=== PATIENT | female | born 1990 | race Two or more races ===

== ENCOUNTER 2024-05-07 14:31 | Outpatient (RCR) | payer OTHER, SELFPAY ==
--- NOTE | 2024-04-09 14:36 | XR_ITS ---
Examination: Biophysical profile, ultrasound Date and time of exam: April 09, 2024 1444 hours INDICATIONS: High risk Technique: Multiple transabdominal sonographic images of the pelvis abdomen obtained. Attention is directed to the breathing movement, gross body movement, amniotic fluid volume and tone. Findings: Amniotic fluid index 9.1 cm Total biophysical profile is 8 of 8. breathing movement is 2. Gross body movement is 2. tone is 2. Qualitative amniotic fluid volume is 2 Impression: Biophysical profile is 8 of 8.
[2024-04-09 15:07] VITALS: BP 125/81; PULSE 66; RESP 16
--- NOTE | 2024-04-16 14:35 | XR_ITS ---
Examination: Biophysical profile, ultrasound Date and time of exam: April 16, 2024 1459 hours INDICATIONS: heart murmur noted on examination this week, high risk Technique: Multiple transabdominal sonographic images of the pelvis abdomen obtained. Attention is directed to the breathing movement, gross body movement, amniotic fluid volume and tone. Findings: Amniotic fluid index 9.0 cm Total biophysical profile is 8 of 8. breathing movement is 2. Gross body movement is 2. tone is 2. Qualitative amniotic fluid volume is 2 Impression: Biophysical profile is 8 of 8.
[2024-04-16 15:41] VITALS: BP 116/76; PULSE 63; RESP 16; TEMP 36.4
--- NOTE | 2024-04-23 14:15 | XR_ITS ---
Examination: Biophysical profile, ultrasound Date and time of exam: April 23, 2024 6 1424 hours INDICATIONS: High risk regnancy, heart murmur diagnosis Technique: Multiple transabdominal sonographic images of the pelvis abdomen obtained. Attention is directed to the breathing movement, gross body movement, amniotic fluid volume and tone. Findings: Amniotic fluid index 11.1 cm Total biophysical profile is 8 of 8. breathing movement is 2. Gross body movement is 2. tone is 2. Qualitative amniotic fluid volume is 2 Impression: Biophysical profile is 8 of 8.
[2024-04-23 14:51] VITALS: BP 126/66; PULSE 79; RESP 18
--- NOTE | 2024-04-30 14:11 | XR_ITS ---
Examination: Biophysical profile, ultrasound Date and time of exam: April 30, 2024 1434 hours INDICATIONS: High risk with heart murmur Technique: Multiple transabdominal sonographic images of the pelvis abdomen obtained. Attention is directed to the breathing movement, gross body movement, amniotic fluid volume and tone. Findings: Amniotic fluid index 8.0 cm Total biophysical profile is 8 of 8. breathing movement is 2. Gross body movement is 2. tone is 2. Qualitative amniotic fluid volume is 2 Impression: Biophysical profile is 8 of 8.
[2024-04-30 15:04] VITALS: BP 124/62; PULSE 85; RESP 16; TEMP 36.7
--- NOTE | 2024-05-07 14:37 | XR_ITS ---
Examination: Biophysical profile, ultrasound Date and time of exam: May 07, 2024 1441 hours INDICATIONS: Diagnosis high risk Technique: Multiple transabdominal sonographic images of the pelvis abdomen obtained. Attention is directed to the breathing movement, gross body movement, amniotic fluid volume and tone. Findings: Amniotic fluid index 11.3 cm Total biophysical profile is 8 of 8. breathing movement is 2. Gross body movement is 2. tone is 2. Qualitative amniotic fluid volume is 2 Impression: Biophysical profile is 8 of 8.
[2024-05-07 15:14] VITALS: BP 121/73; PULSE 80; RESP 16; TEMP 37
== END 2024-05-07 23:59 | disposition home or self-care (01) ==
LOC: S4S1 14:31
PROVIDERS: PCP Family Medicine; Referring Provider Obstetrics & Gynecology; Visit Provider Obstetrics & Gynecology
DX: O09.93 Supervision of high risk pregnancy, unspecified, third trimester (principal); Z3A.38 38 weeks gestation of pregnancy
CPT/HCPCS: 59025; 76819

== ENCOUNTER 2024-05-10 10:42 | Inpatient (IN) | payer OTHER, SELFPAY ==
[2024-05-10] VITALS (62 sets, daily range): BP systolic 0–195; BP diastolic 0–114; PULSE 70–154; RESP 16; TEMP 36.3–36.8; O2SAT 83–100; BMI 40.3
[2024-05-10 11:58] LABS: ROM Kit Lot # 57805053; ROM Swab Mixed By: DAVIS2; Rupture of Fetal Membranes Positive (Negative); Swb Mxed in Solvent 1 min? Yes
[2024-05-10] MEDS: SODIUM CHLORIDE 0.9% 1000 ML 1,000 ML 100 ML IV (12:40)
[2024-05-10 13:11] LABS: Basophils % (Auto) 0 % (0-2.5); Eosinophils # (Auto) 0.1 Thou/mm3 (0.0-0.5); Eosinophils % (Auto) 1 % (0-10); Hematocrit 40.5 % (36.0-46.0); Hemoglobin 14.1 g/dL (12.0-16.0); Immature Granulocytes % (Auto) 1 % (0-0); Immature Granulocytes Auto 0.06 Thou/mm3 (0.00-0.00); Lymphocytes % (Auto) 17 % (10-50); Mean Corpuscular HGB Conc 34.8 g/dl (31.0-37.0); Mean Corpuscular Hemoglobin 30.5 pg (25.0-35.0); Mean Corpuscular Volume 88 fL (80-100); Monocytes % (Auto) 9 % (0-12); Neutrophils # (Auto) 8.2 Thou/mm3 (1.8-7.7); Neutrophils % (Auto) 73 % (37-80); Nucleated Red Blood Cell % 0 /100 WBC (0); Platelet Count 312 Thou/mm3 (140-440); RDW Standard Deviation 42.2 fL (36.4-46.3); Red Blood Count 4.63 Miln/mm3 (4.00-5.20); White Blood Count 11.3 Thou/mm3 (3.6-11.0)
[2024-05-10 15:55] LABS: Syphilis Nonreactive (Nonreactive)
[2024-05-10] MEDS: OXYTOCIN in NS 30 units 30 UNIT/500 ML BAG IV (16:09)
--- NOTE | 2024-05-10 16:54 | PD.LDHP ---
Documentation for date of: 05/10/24 OB Labor/Induct. HPI History of Present Illness : 2 History of present illness: 34 y/o @38w6d , per LMP 1st trimester , her ewith concerns of leaking fluids. Pt started leaking clear fluids since 6.30 am, occasionally topher , no bleeding. Previous VDX1. History of Present Dating criteria: LMP confirmed by 1st trimester US Adequate Care: Yes Labs Narrative: nipt wnl Meds Home Medications and Allergies Home Medications ?Medication ?Instructions ?Recorded ?Confirmed ?Type prenat.vits,blanco,[id number] 1 tab PO QDAY 08/03/22 04/03/24 History ferrous sulfate 27 mg iron tablet 27 mg PO QDAY 04/03/24 04/03/24 History Allergies Allergy/AdvReac Type Severity Reaction Status Date / Time No Known Allergies Allergy Verified 04/03/24 15:09 OB Exam Physical Exam Vital signs: Temp Pulse Resp BP Pulse Ox O2 Del Method 98.2 F 72 16 136/84 H 96 Room Air 05/10/24 15:32 05/10/24 12:24 05/10/24 15:32 05/10/24 12:24 05/10/24 13:45 05/10/24 11:02 Constitutional Constitutional: no acute distress Routine HEENT Exam Head: Present normocephalic and atraumatic Eye: Present EOMI and PERRL ENT: Present mucous membranes moist Routine Neck Exam Neck: Present supple and trachea midline Routine Cardiovascular Exam Cardiovascular: Present RRR Routine Abdominal Exam Abdominal: Present soft and normoactive bowel sounds Detailed Labor and Delivery Exam Dilation (cm): 2 Effacement (%): 50 Cervix position: anterior Consistency: soft Membranes: ruptured Comments: cat 1 FHT Routine Extremities Exam Extremities: Present full ROM Routine Skin Exam Skin: Present intact, dry and warm Routine Neurological Exam Neurological: Present alert, oriented X3 and CN II-XII intact Routine Psychiatric Exam Psychiatric: Present normal affect and normal thought process OB Results Labs 05/10/24 12:40 Labs: Short CBC 05/10/24 Range/Units 12:40 WBC 11.3 H (3.6-11.0) Thou/mm3 Hgb 14.1 (12.0-16.0) g/dL Hct 40.5 (36.0-46.0) % Plt Count 312 D (140-440) Thou/mm3 Impressions Impression: 34 Y/O @ 38w6d, for IOL , SROM@6.30 am, 05/10 gbs-ve Anatomy scan concerned a small VSD , was being followed by MFM patinet was scheduled for IOL next week by her OBGYN GTT wnl SUBCLINICAL HYPOTHYROIDISM 04/11 US : EFW predicted would be 3600 gm OB Assessment & Plan Additional Plan Additional Plan Comment: pitocin to be started
[2024-05-10] MEDS: RINGERS LACTATED 1000 ML 1,000 ML 999 ML IV ×2 (19:30→20:32)
[2024-05-10] MEDS: LIDOCAINE HCL 1% 20 ML VIAL INFL (21:43)
--- NOTE | 2024-05-10 22:11 | OBDSUM_ITS ---
Data ([place]) Data Para: 1 Delivery Data ([place]) Labor Data Stimulated/Augmented: Yes Method: Oxytocin ROM Date: 05/10/24 ROM Time: 06:20 Rupture Type: SROM Amniotic Fluid: Clear Delivery Data Labor Onset Stage 1 Date: 05/10/24 Labor Onset Stage 1 Time: 06:20 Labor Onset Stage 2 Date: 05/10/24 Labor Onset Stage 2 Time: 21:43 Delivery Date: 05/10/24 Delivery Time: 21:45 Gestational age (weeks): 38 Gestational age (days): 6 Placenta Delivery Date: 05/10/24 Placenta Delivery Time: 21:45 Delivered by: aSde Chand Delivery nurse: Sheila Shaw Other staff at delivery: Florist Helper Delivery Method Delivery: Vaginal Delivery Type: Spontaneous Anesthesia Type Primary Anesthesia: Local Placenta Placenta Delivery: Spontaneous Perineal repair Sutures used for repair: 3.0 Vicryl EBL Estimated blood loss (ml): 150 Umbilical Cord Umbilical Vessels: 3 [place] Data ([place]) Data Gender: Male Infant Weight Grams: 3380 1 Minute Total: 8 5 Minute Total: 8 Additional Comments Additional comments: shoulders and body delivered without complication AMTSL done placenta delivered without complication
[2024-05-10] MEDS: OXYTOCIN in NS 20 units 20 UNIT/1,000 ML BAG 125 UNIT IV (22:25)
[2024-05-10] MEDS: BENZO/LANO/ALOE (Dermoplast) 60 GM CAN 1 SPRAY TOP (22:38)
[2024-05-11] MEDS: IBUPROFEN TAB 400 MG TABLET 800 MG PO ×2 (02:06→17:58)
[2024-05-11] MEDS: OXYTOCIN in NS 20 units 20 UNIT/1,000 ML BAG 125 UNIT IV (03:08)
[2024-05-11 03:45] VITALS: BP 130/81; PULSE 72; RESP 18; TEMP 36.8; O2SAT 95
[2024-05-11 06:49] LABS: Basophils % (Auto) 0 % (0-2.5); Eosinophils % (Auto) 0 % (0-10); Hematocrit 34.7 % (36.0-46.0); Immature Granulocytes % (Auto) 1 % (0-0); Immature Granulocytes Auto 0.08 Thou/mm3 (0.00-0.00); Lymphocytes % (Auto) 13 % (10-50); Mean Corpuscular HGB Conc 34.6 g/dl (31.0-37.0); Mean Corpuscular Hemoglobin 30.5 pg (25.0-35.0); Mean Corpuscular Volume 88 fL (80-100); Monocytes # (Auto) 1.1 Thou/mm3 (0.0-0.8); Monocytes % (Auto) 7 % (0-12); Neutrophils # (Auto) 12.6 Thou/mm3 (1.8-7.7); Neutrophils % (Auto) 80 % (37-80); Nucleated Red Blood Cell % 0 /100 WBC (0); Platelet Count 254 Thou/mm3 (140-440); RDW Standard Deviation 42.2 fL (36.4-46.3); Red Blood Count 3.94 Miln/mm3 (4.00-5.20); White Blood Count 15.9 Thou/mm3 (3.6-11.0)
[2024-05-11 08:40] VITALS: BP 120/76; PULSE 71; RESP 16; TEMP 36.7; O2SAT 97
--- NOTE | 2024-05-11 08:57 | ESPR_ITS ---
Subjective Subjective Interval history: Delivery type: Patient doing well this morning. No acute complaints. Ambulating, tolerating p.o. and voiding without difficulty. HTN/Pre-Eclampsia screen: No chest pain, shortness of breath, headache, visual changes, epigastric or right upper quadrant pain. Breast-feeding, lochia diminishing. Bowel: Flatus+/ BM+ Exam Vital Signs Temp Pulse Resp BP Pulse Ox O2 Del Method 98.2 F 72 18 130/81 95 Room Air 05/11/24 03:45 05/11/24 03:45 05/11/24 03:45 05/11/24 03:45 05/11/24 03:45 05/11/24 03:45 Constitutional Constitutional: no acute distress Routine HEENT Exam Head: Present normocephalic and atraumatic Eye: Present EOMI and PERRL ENT: Present mucous membranes moist Routine Neck Exam Neck: Present supple and trachea midline Routine Respiratory Exam Respiratory: Present chest non-tender, lungs clear, normal breath sounds and no resp distress Routine Cardiovascular Exam Cardiovascular: Present RRR Routine Abdominal Exam Abdominal: Present soft and normoactive bowel sounds Routine Extremities Exam Extremities: Present full ROM Routine Skin Exam Skin: Present intact, dry and warm Routine Neurological Exam Neurological: Present alert, oriented X3 and CN II-XII intact Routine Psychiatric Exam Psychiatric: Present normal affect and normal thought process Objective Labs 05/11/24 05:44 Labs: Laboratory Results - last 24 hr 05/10/24 05/10/24 05/10/24 11:24 12:40 12:40 WBC 11.3 H RBC 4.63 Hgb 14.1 Hct 40.5 MCV 88 MCH 30.5 MCHC 34.8 RDW Std Deviation 42.2 Plt Count 312 D Neut % (Auto) 73 Lymph % (Auto) 17 [place] % (Auto) 9 Eos % (Auto) 1 Baso % (Auto) 0 Neut # (Auto) 8.2 H Lymph # (Auto) 2.0 [place] # (Auto) 1.0 H Eos # (Auto) 0.1 Baso # (Auto) 0.0 Immature Gran # (Auto) 0.06 H Absolute Nucleated RBC 0.00 Immature Gran % 1 H Nucleated RBC % 0 Membrane Rupture Positive A Syphilis Serology Nonreactive Blood Type Cancelled O Positive Antibody Screen Cancelled Blood Bank Wristband ID 11/05/10/24 05/11/24 12:40 12:40 05:44 WBC 15.9 H D RBC 3.94 L Hgb 12.0 D Hct 34.7 L MCV 88 MCH 30.5 MCHC 34.6 RDW Std Deviation 42.2 Plt Count 254 D Neut % (Auto) 80 Lymph % (Auto) 13 [place] % (Auto) 7 Eos % (Auto) 0 Baso % (Auto) 0 Neut # (Auto) 12.6 H Lymph # (Auto) 2.0 [place] # (Auto) 1.1 H Eos # (Auto) 0.0 Baso # (Auto) 0.0 Immature Gran # (Auto) 0.08 H Absolute Nucleated RBC 0.00 Immature Gran % 1 H Nucleated RBC % 0 Membrane Rupture Syphilis Serology Blood Type Antibody Screen NEGATIVE Blood Bank Wristband ID Cancelled Yes Assessment & Plan Problem List (1) Vaginal delivery: Status: Acute Assessment and plan: 1. Continue routine /post-op care 2. Labs reviewed, cbc appropriate 3. Remove dressing/[place] 4. Encourage to ambulate, shower 5. Encourage PO intake, breast feeding Time Spent With Patient Time: Total time spent is greater than 50% in coordination of care (as documented) at patient's floor/unit and/or counseling patient:
[2024-05-11 12:49] VITALS: BP 121/73; PULSE 72; RESP 16; TEMP 36.6
[2024-05-11 16:25] VITALS: BP 121/82; PULSE 82; RESP 17; TEMP 36.8; O2SAT 97
--- NOTE | 2024-05-11 16:42 | PC.NURSE ---
Dr Davila notified of petechial rash on shoulder and upper chest and forehead, patient is asymptomatic and does not want to take any medication at this time, will evaluate it on his next round.
[2024-05-11 19:45] VITALS: BP 110/73; PULSE 74; RESP 18; TEMP 36.6; O2SAT 96
[2024-05-12 03:23] VITALS: BP 113/74; PULSE 60; RESP 16; TEMP 36.8; O2SAT 97
[2024-05-12] MEDS: IBUPROFEN TAB 400 MG TABLET 800 MG PO (03:24)
[2024-05-12 08:20] VITALS: BP 125/80; PULSE 71; RESP 18; TEMP 36.4; O2SAT 97
--- NOTE | 2024-05-12 09:05 | PD.LDPPPRG ---
Subjective Subjective Interval history: Delivery type: Patient doing well this morning. No acute complaints. Ambulating, tolerating p.o. and voiding without difficulty. HTN/Pre-Eclampsia screen: No chest pain, shortness of breath, headache, visual changes, epigastric or right upper quadrant pain. Breast-feeding, lochia diminishing. Bowel: Flatus+/ BM Exam Vital Signs Temp Pulse Resp BP Pulse Ox O2 Del Method 97.5 F 71 18 125/80 97 Room Air 05/12/24 08:20 05/12/24 08:20 05/12/24 08:20 05/12/24 08:20 05/12/24 08:20 05/12/24 08:20 Constitutional Constitutional: no acute distress Routine HEENT Exam Head: Present normocephalic and atraumatic Eye: Present EOMI and PERRL ENT: Present mucous membranes moist Routine Neck Exam Neck: Present supple and trachea midline Routine Respiratory Exam Respiratory: Present chest non-tender, lungs clear, normal breath sounds and no resp distress Routine Cardiovascular Exam Cardiovascular: Present RRR Routine Abdominal Exam Abdominal: Present soft and normoactive bowel sounds Routine Extremities Exam Extremities: Present full ROM Routine Skin Exam Skin: Present intact, dry and warm Routine Neurological Exam Neurological: Present alert, oriented X3 and CN II-XII intact Routine Psychiatric Exam Psychiatric: Present normal affect and normal thought process Objective Labs 05/11/24 05:44 Assessment & Plan Problem List (1) Vaginal delivery: Status: Acute Assessment and plan: PPD/POD#2 1. Continue routine care 2. Transition to PO meds. 3. Encourage to ambulate/ breast-feed 4. Anticipate discharge home today. You Time Spent With Patient Time: Total time spent is greater than 50% in coordination of care (as documented) at patient's floor/unit and/or counseling patient:
--- NOTE | 2024-05-12 09:06 | ESDS_ITS ---
DS: Providers Provider Date of admission: 05/10/24 13:21 Primary care physician: Physician No Primary/Family Admitting Provider: Sade Chand MD Attending Provider on Admission: Samm Davila MD Consults: 05/10/24 22:09 Referral Routine Comment: Attending Provider on DC: Samm Davila MD Discharging Provider: Samm Davila MD DS: Diagnosis Discharge Diagnosis (1) Vaginal delivery: Status: Acute Problem List Completed Was Problem List Reviewed/Reconciled?: Yes Summary/Hosp Course Brief History: 34 y/o @38w6d , per LMP 1st trimester , her ewith concerns of leaking fluids. Pt started leaking clear fluids since 6.30 am, occasionally topher , no bleeding. Previous VDX1. Time Spent with Patient Time attestation: Total time spent providing and/or coordinating discharge services: Exam Vital Signs Temp Pulse Resp BP Pulse Ox O2 Del Method 97.5 F 71 18 125/80 97 Room Air 05/12/24 08:20 05/12/24 08:20 05/12/24 08:20 05/12/24 08:20 05/12/24 08:20 05/12/24 08:20 Discharge Plan Plan Patient Disposition: HOME (Self Care) Patient condition on transfer: Stable Prescriptions/Referrals Prescriptions/Med Rec: New ibuprofen 400 mg Tablet 800 mg PO Q8H PRN (Reason: See Comments) 10 Days Qty: 40 0RF docusate sodium [Stool Softener] 100 mg capsule 100 mg PO QDAY 30 Days Qty: 30 0RF Continued prenat.vits,blanco,[id number] Tablet 1 tab PO QDAY ferrous sulfate 27 mg iron Tablet 27 mg PO QDAY Referrals: Samm Davila MD [Physician] - No Primary/Family,Physician [Primary Care Provider] - Patient/Caregiver Discharge Instructions Meds to Beds: Yes Discharge Activity: activity as tolerated Education Materials: After a Vaginal , Breast Care After , Incision Care After Vaginal , Nutrition While , Understanding Depression, Feel Healthy After Print Language: Maltese Stand Alone Forms: Felicity Award Info., Patient Portal Info Letter Discharge Order Discharge Orders: Discharge (Routine); Ordered 05/12/24 Ordered By: Samm Davila Planned Discharge Date 05/12/24
== END 2024-05-12 11:30 | disposition home or self-care (01) | DRG 807 ==
LOC: S4SX 22:08 → S4NX 05-11 08:57 → S4SX 05-14 06:55 → S4NX 05-14 06:55
PROVIDERS: Admitting Provider Student in an Organized Health Care Education/Training Program; Visit Provider Obstetrics & Gynecology
DX: O42.02 Full-term premature rupture of membranes, onset of labor within 24 hours of rupture (principal); Z37.0 Single live birth; Z3A.38 38 weeks gestation of pregnancy; O99.284 Endocrine, nutritional and metabolic diseases complicating childbirth; E03.9 Hypothyroidism, unspecified
CPT/HCPCS: 36415; 59409; 80170; 82570; 84112; 84156; 84166; 85025; 86780; 86850; 86900; 86901; 94762; J2590; J2795; J3490; J7030; J7120; A9270

== ENCOUNTER 2024-05-15 14:06 | Outpatient (AMBR) | payer OTHER, SELFPAY ==
--- NOTE | 2024-05-15 14:45 | LAC.VISIT ---
Assessment LAC OP History History Hx of Breast Surgery: No Hx of Breast Feeding Problems: Yes History Comment: First baby had tongue tie and lip tie, was corrected but not right away. ended up with tissue breakdown and stopped due to this LAC Breast Assessment Breast Assessment Bilateral: Breast Assessment Comment: Both nipples have tissue break down and brusing as well as some bleeding when placed baby on the breast to nurse. Breast Assessment Comment: Tissue breakdown on nipple close to the tip and lateral side of right breast LAC Pain Pain Bilateral Nipple: Pain Comment: Put baby to breast on the left side with 24 mm nipple shield. mom was still in a lot of pain, baby not able to stay on the shield, kept tongue thrusting. mom states that baby not able to stay on the breast effectively, would come off crying and does not empty breast. she tried pumping with her Spectra electric pump but the flanges were too small and they were abrading her nipples as well. Has larger flanges on order Alternative Milk Expression Alternative Milk Expression Alternative Method Used: Yes Method Used: Pumping Alternative Method Comment: Waiting on new bigger flanges for her Spectra. Issued an Ameda kit since it has the hand pump in it. Needed to see mom's milk supply at this time. Still slightly in the colostral phase. milk supply not high, most likely due to baby not effectively emptying breasts. Alternative Method Used Reason: Poor Feeding and Sore Nipples Alternative Method Produced Milk / Colostrum: Yes Production Amount: 25 Production ounces or mls: mls Pump Used: Electric Pumping Frequency Comment: Explained to mom to pump at least every 2-3 hours to ensure her milk supply goes up. Mom understood LAC Assessment Breast Feeding Assessment Date of : 05/10/24 Current Age of baby: 5 (days) Breast Feeding Ability: Poor [place] Complications Comment: due to poor feeding at the breast and bleeding, bruised and cracked nipples mom has been supplementing with formula at this time. [place] Activity Level: Sleepy Muscle Tone: With In Normal Limits Suck Quality: Tongue Retracts and Tongue Thrusts Effective Suck: No [place] Jaw: Receding [place] Lip Seal: Weak Suction and Tight Lips Feeding Posistion: Football Additional Latch or Posistion Assistance Needed: Full Breast Feeding Comment: Used nipple shield to assist in latch and to help with mom's bleeding nipples, baby tolerated ok, but did not stay latched, slide off of shield and clamped down on mom's nipple. very painful for mom. LAC Intervention Interventions Other Tools: Nipple shield 24 mm, Breast shells, hydro gel pads, pumping kit Nipple Shield Size: Medium Techniques Discussed: Pumping Discharge Other Referral Made: Yes Feeding Preference at Discharge: Breast Milk and Formula Out Patient Sales And Marketing Agent: Oral Surgeon for consult LAC Latch Score LATCH Score Latch: Repeat Attempt to Hold Nipple Audible Swallow: None Nipple Type: Everted After Stimulation Comfort: Engorged, Cracked, Bleeding Hold: Minimal Assistance Needed Total Score: 4 LAC [place] Oral Assessment Oral Assessment Prenulum Level: Posterior Lip: Tight Upper Lip Palate: Normal / Intact Dental Referral made: Yes OP DC Assessment Discharge Other Referral Made: Yes Out Patient Sales And Marketing Agent: Oral Surgeon for consult Visit Complete?: Yes
== END 2024-06-11 23:59 | disposition home or self-care (01) ==
LOC: HODLAC 14:06
DX: Z39.1 Encounter for care and examination of lactating mother (principal)

== ENCOUNTER 2024-05-28 15:55 | Outpatient (AMBR) | payer OTHER, SELFPAY ==
--- NOTE | 2024-05-28 16:44 | LACNOTE_ITS ---
Assessment LAC Breast Assessment Breast Assessment Left: Breast Assessment Comment: mom's nipple tissue has healed from the last visit, she states she is still putting baby to breast but is feeling much better when he nurses. no pain. Alternative Milk Expression Alternative Milk Expression Alternative Method Used: Yes Method Used: Pumping Alternative Method Comment: Mom using Spectra electric pump has been able to get larger flange sizes which help with no pain when pumping. Alternative Method Used Reason: Sore Nipples Pumping Frequency Comment: mom is pumping around every 4 hours, she has a 1 year old at home and has just been exhausted and stressed out. pumping 1.5-2 ounces at each session. LAC Assessment Breast Feeding Assessment Current Age of baby: 3 (weeks) Breast Feeding Ability: Well [place] Complications Comment: baby had lip tie release on May 20 with [facility], although doctor stated he did not feel that there was a tongue tie. We will keep an eye on what baby is doing at the breast and with the bottle to determine if the tongue adapts or if he continues to struggle with it. [place] Activity Level: Rooting and Crying [place] Muscle Tone: Tense Suck Quality: Areolar Compression, Rhythmic, Tongue Retracts and Tongue Thrusts Effective [place] Suck: Yes Swallow: Audible and Observed [place] Jaw: With In Norml Limits [place] Lip Seal: Good Feeding Posistion: Football Additional Latch or Posistion Assistance Needed: Minimal Breast Feeding Comment: baby tolerated breastfeed, was on breast for 18 minutes, he did fall off in the middle of feed and mom able to get him to relatch and nurse a little longer LAC Intervention Discharge Other Referral Made: Yes LAC Latch Score LATCH Score Latch: Grasps Breast, Rythmic Suck Audible Swallow: Spontaneous, Intermittent, Frequent Nipple Type: Everted After Stimulation Comfort: Soft, Nontender Hold: Minimal Assistance Needed Total Score: 9 LAC Oral Assessment Oral Assessment Prenulum Level: Posterior Lip: Normal Exam Palate: Normal / Intact Oral Assessment Comment: top lip able to flange and hold breast much better, bottle lip extended out, mom states she feels tongue thrusts towards end of feed OP DC Assessment Discharge Other Referral Made: Yes Visit Complete?: Yes
== END 2024-06-11 23:59 | disposition home or self-care (01) ==
LOC: HODLAC 15:55
DX: Z39.1 Encounter for care and examination of lactating mother (principal)

== ENCOUNTER 2024-09-05 14:02 | Outpatient (AMB) | payer OTHER, SELFPAY ==
[2024-09-05 14:11] VITALS: BP 122/81; PULSE 82; RESP 16; TEMP 36.2; O2SAT 96
--- NOTE | 2024-09-05 14:11 | GYNCLNT_ITS ---
Vital Signs 09/05/24 14:11 Weight 104.95 kg Weight Measurement Method Standing Scale BP 122/81 Blood Pressure Source Automatic Cuff Blood Pressure Location Left Upper Arm Position Sitting Respiration 16 Pulse 82 Pulse Source Monitor Temp 97.2 F Temp Source Oral Pulse Oximetry (%) 96 Oxygen Delivery Method Room Air Allergies/Home Meds Allergies & Medications Allergies No Known Allergies Allergy (Verified 09/05/24 14:12) Medication Reconciliation prenat.vits,blanco,yzx-gxri-rxmzl 1 tab PO QDAY 08/03/22 [History Confirmed 09/05/24] ferrous sulfate 27 mg iron tablet 27 mg PO QDAY 04/03/24 [History Confirmed 09/05/24] Intake Visit Data Collection New Patient or Established: Established Patient (seen at [facility] within 3 years) Reason for Visit:: pelvic floor discomfort Seen by Clinical Staff ONLY (RN/MA): No Office Coordinator Receptionist Required: No Do You Feel Safe at Home: Yes Authorities Contacted: N/A PCP or OBGYN visit in last 3 months: No Hx Now: No Are you currently on any form of Control: No Pain Present Currently: No Pain Scale Used: Muniz-Araujo/Numerical Pain scale:: 0 Smoking Status Smoking Status: Never smoker Attorney General history Attorney General History Menstrual regularity: regular Flow: normal Monthly: No Currently sexually active: Yes Additional comments: PATIENT IS SHE CURRENTLY DOES NOT GET PERIODS Questionnaires Covid-19 Vaccine Questionnaire Has patient been vacinated for Covid-19 Have you been vacinated for Covid-19: Yes PHQ-9 PHQ-2 Over the last 2 weeks, how often have you been bothered by any of the following problems? 1. Little interest or pleasure in doing things: not at all 2. Feeling down, depressed, or hopeless: not at all Total score: 0 PHQ-9 3. Trouble falling or staying asleep, or sleeping too much: Not at all 4. Feeling tired or having little energy: Not at all 5. Poor appetite or overeating: Not at all 6. Feeling bad about yourself - or that you are a failure or have let yourself or your family down: Not at all 7. Trouble concentrating on things, such as reading the newspaper or watching television: Not at all 8. Moving or speaking so slowly that other people could have noticed? - Or the opposite - being so fidgety or restless that you have been moving around a lot more than usual: not at all 9. Thoughts that you would be better off or of hurting yourself in some way: Not at all Total score: 0 If you checked off any problems, how difficult have these problems made it for you to do your work, take care of things at home, or get along with other people?: not difficult at all Source: Developed by Drs. Neo Barlow, Flores Estes, Augustine Varma and colleagues, with an educational patricia from [employer]. Depression screen completed yes Social History Living Situation History Marital Status: Lives With: Family Housing: House Tobacco History Smoking Status: Never smoker Second Hand Smoke Exposure: No Alcohol History Alcohol Intake: Never Domestic Abuse History Do You Feel Safe at Home: Yes Past Medical History Past Medical History Have you ever been diagnosed with any of the following: Neurological Problems Seizures: No Cardiology Problems Congestive Heart Failure: No Respiratory Problems Chronic Obstructive Pulmonary Disease (COPD): No Stomache/Intestinal Problems Hepatitis: No Genital/Urinary Problems Renal Disease: No Reproductive Problems Breast Cancer: No Pelvic Inflammatory Disease: No Previous Pregnancies: Yes Endocrine Problems Diabetes Mellitus Type 1: No Diabetes Mellitus Type 2: No Blood Problems Anemia: Yes Other Problems Hospitalization: No Down Syndrome: No Developmental Delay: No Shingles: No Falls: No Blood Transfusions: No Blood Transfusion Reaction: No Anesthesia Reactions: No Organ Transplant: No Chemotherapy: No Radiation Therapy: No Hyperbaric Therapy: No MRSA: No VRSA: No Vancomycin-Resistant Enterococci: No Human Immunodeficiency Virus (HIV): No Chicken Pox: No Measles: No Mumps: No Rubella ([place] Citizen Measles): No Pertussis: No Clostridium Difficile: No Cancer: No Cervical Cancer: No History of Present Illness HPI Narrative History of Present Illness The patient recently underwent a operative delivery, resulting in the of a male infant. She reports improved function of her hands. The patient is seeking clearance to return to work without restrictions. Additionally, she mentions experiencing pelvic floor issues and is interested in finding a pelvic floor therapist for treatment. Social History - Occupation: recently gave , seeking return to work - Employment status: currently on leave, concerned about contract and pay - Family structure: recently had a baby boy Review of Systems Review of Systems Systems Reviewed: All systems reviewed, normal except as documented Exam General Limitations: no limitations General Appearance: alert, in no apparent distress, comfortable, cooperative, healthy appearing, well developed and well groomed Head Head exam: atraumatic, normocephalic and normal inspection Neck Neck exam: Present normal inspection, full ROM and trachea midline Chest Chest inspection: Present normal inspection and symmetric chest wall rise Abdominal Abdominal exam: Present soft and normal bowel sounds Extremities Extremities exam: Present normal inspection and full ROM Back Back exam: Present normal inspection and full ROM Psych Psychiatric exam: Present normal affect and normal mood Skin Skin exam: Present warm, dry, intact and normal color Assessment & Plan Diagnosis / Problem List (1) care and examination: Status: Acute Plan: care Patient is following a recent section delivery of a male . She reports doing better with her hands, suggesting possible improvement in symptoms or recovery. The patient is seeking clearance to return to work. - Write [id number] letter for patient, dated July 09, 2024 - Specify no restrictions in the [id number] letter - Provide referral to pelvic floor therapist at [facility] for pelvic floor therapy Family planning Patient reports satisfaction with current family planning method, stating it has worked for us. No desire for changes to contraception at this time. - Continue current family planning method - No new contraceptive interventions planned (2) Pelvic floor dysfunction in female: Status: Acute Office Procedures OB Clinic LOC & Office Proc's Nursing/Assessment Patient Status: Established Patient OB Clinic Nursing Assessment: BP Monitoring, Medication Reconciliation, Update PMH in EMR and Vital Signs OB Clinic Coordination of Care: Consent,records obtained, informed consent, Education Simp Pt/Fam, Lab and Imaging orders and Staff clarify orders Established Patient Charge Established Patient Point Assignment: 90 Established Patient Point Charge: EP Level 3 (80-115)
== END 2024-09-05 14:22 | disposition home or self-care (01) ==
LOC: HODSOBC 14:02
PROVIDERS: PCP Obstetrics & Gynecology; Referring Provider Obstetrics & Gynecology; Supervising Provider Obstetrics & Gynecology; Visit Provider Obstetrics & Gynecology
DX: Z39.2 Encounter for routine postpartum follow-up (principal); M62.89 Other specified disorders of muscle
CPT/HCPCS: 99213; G0463

== ENCOUNTER 2024-12-17 10:00 | Emergency (ER) | payer OTHER, SELFPAY ==
[2024-12-17 10:01] VITALS: BMI 37.8
[2024-12-17 10:11] VITALS: BP 150/92; PULSE 84; RESP 17; TEMP 36.8; O2SAT 98
--- NOTE | 2024-12-17 10:19 | XR_ITS ---
Examination: OB Transvaginal ultrasound of the pelvis, complete Technique: Transvaginal sonographic images pelvis performed using smith scale imaging Exam date and time: December 17, 2024 1134 hours INDICATIONS: Vaginal bleeding beginning 7 hours ago. FINDINGS: Uterus 9.0 cm endometrial stripe 1.6 cm Left lateral uterine body mass 28 x 28 x 28 mm Right ovary 3.4 cm arterial flow Left ovary 3.7 cm arterial flow IMPRESSION: Uterine body mass 28 x 28 mm consistent with fibroid degeneration, recommend 6 month follow-up transvaginal pelvic sonography.
[2024-12-17 10:53] LABS: Basophils # (Auto) 0.0 Thou/mm3 (0.0-0.2); Basophils % (Auto) 0 % (0-2.5); Eosinophils # (Auto) 0.2 Thou/mm3 (0.0-0.5); Eosinophils % (Auto) 2 % (0-10); Hematocrit 42.3 % (36.0-46.0); Hemoglobin 14.4 g/dL (12.0-16.0); Immature Granulocytes Auto 0.03 Thou/mm3 (0.00-0.00); Lymphocytes # (Auto) 2.3 Thou/mm3 (1.0-4.8); Lymphocytes % (Auto) 23 % (10-50); Mean Corpuscular HGB Conc 34.0 g/dl (31.0-37.0); Mean Corpuscular Hemoglobin 29.1 pg (25.0-35.0); Mean Corpuscular Volume 86 fL (80-100); Monocytes # (Auto) 0.6 Thou/mm3 (0.0-0.8); Monocytes % (Auto) 6 % (0-12); Neutrophils # (Auto) 6.7 Thou/mm3 (1.8-7.7); Neutrophils % (Auto) 68 % (37-80); Nucleated Red Blood Cell # 0.00 Thou/mm3 (0.00-0.00); Nucleated Red Blood Cell % 0 /100 WBC (0); Platelet Count 321 Thou/mm3 (140-440); RDW Standard Deviation 40.0 fL (36.4-46.3); Red Blood Count 4.95 Miln/mm3 (4.00-5.20); White Blood Count 9.9 Thou/mm3 (3.6-11.0)
[2024-12-17 11:01] LABS: Alanine Aminotransferase 20 U/L (10-49); Albumin, Serum 5.0 gm/dL (3.5-5.0); Albumin/Globulin Ratio 1.4 (1.2-2.2); Alkaline Phosphatase 84 U/L (46-116); Anion Gap 11 (7-16); Aspartate Amino Transferase 25 U/L (0-34); BUN/Creatinine Ratio 14 Ratio (12-20); Beta HCG,Quantitative 68 mIU/mL (<5.0); Bilirubin,Total 1.0 mg/dL (0.3-1.2); Blood Urea Nitrogen 11 mg/dL (9-23); Calcium 9.7 mg/dL (8.3-10.6); Calcium (Corrected) 9.7 mg/dL (8.5-10.1); Carbon Dioxide 25.2 mMol/L (20.0-31.0); Chloride 103 mMol/L (98-107); Creatinine (Component) 0.8 mg/dL (0.6-1.3); Estimated Creatinine Clearance 114.8 mL/min (>60); Globulin 3.6 gm/dL (2.3-3.5); Glucose 91 mg/dL (74-106); Osmolality,Calculated 276 (275-295); Potassium 4.0 mMol/L (3.4-5.1); Sodium 139 mMol/L (136-145); Total Protein 8.6 gm/dL (5.7-8.2); eGFR > 60 See Note
--- NOTE | 2024-12-17 12:25 | EDNOTE_ITS ---
ED OB Contraction Preg RMI/HPI General Chief complaint: OB/Uterine Contractions Stated complaint: HEAVY VAG BLEEDING; PREG 6W5D; SENT BY DR. SERRATO Time Seen by Provider: 12/17/24 10:11 Arrival date/time: 12/17/24 10:00 34-year-old female presents emergency dept today for complaints of vaginal bleeding patient was sent by Dr. Serrato BISTRO ATTENDANT for further evaluation Limitations: no limitations Related Data Home Medications ?Medication ?Instructions ?Recorded ?Confirmed prenat.vits,blanco,jsr-elrm-khemt 1 tab PO QDAY 08/03/22 09/05/24 ferrous sulfate 27 mg iron tablet 27 mg PO QDAY 09/05/24 Allergies Allergy/AdvReac Type Severity Reaction Status Date / Time No Known Allergies Allergy Verified 12/17/24 10:03 Review of Systems Review of Systems Systems Reviewed: All systems reviewed, normal except as documented Constitutional Constitutional: Reports system reviewed and no additional complaints, except as documented, Denies fever(s) and Denies headache(s) Eyes Eyes: Reports system reviewed and no additional complaints, except as documented and Denies blurry vision ENT Ears, Nose, Mouth, and Throat: Reports system reviewed and no additional complaints, except as documented, Denies headache(s), Denies nasal congestion and Denies nasal discharge Cardiovascular Cardiovascular: Reports system reviewed and no additional complaints, except as documented, Denies chest pain and Denies dyspnea Respiratory Respiratory: Reports system reviewed and no additional complaints, except as documented, Denies chest congestion, Denies cough and Denies dyspnea Gastrointestinal Gastrointestinal: Reports system reviewed and no additional complaints, except as documented and Reports abdominal pain Integumentary/Breasts Skin/Breast: Reports system reviewed and no additional complaints, except as documented and Denies rash Neurologic Neurologic: Reports system reviewed and no additional complaints, except as documented, Reports as per HPI and Denies headache(s) Past Medical History Past Medical History NEUROLOGIC: Negative Neurological Disorders or Seizures CARDIAC: Negative Cardiac Disorders or Congestive Heart Failure RESPIRATORY: Negative Chronic Obstructive Pulmonary Disease (COPD) GASTROINTESTINAL: Negative Gastrointestinal Disorders or Hepatitis GENITOURINARY: Negative Genitourinary Disorders or Renal Disease REPRODUCTIVE: Positive Previous Pregnancies; Negative Breast Cancer or Pelvic Inflammatory Disease MUSCULOSKELETAL: Negative Musculoskeletal Disorders ENDOCRINE: Negative Endocrine Disorders, Diabetes Mellitus Type 1 or Diabetes Mellitus Type 2 HEMATOLOGIC: Positive Blood Disorders and Anemia OTHER HISTORY: Negative Hospitalization, Autoimmune Disease, Down Syndrome, Developmental Delay, Shingles, Falls, Blood Transfusions, Blood Transfusion Reaction, Anesthesia Reactions, Organ Transplant, Chemotherapy, Radiation Therapy, Hyperbaric Therapy, MRSA, VRSA, Vancomycin-Resistant Enterococci, Human Immunodeficiency Virus (HIV), Chicken Pox, Measles, Mumps, Rubella ([place] Measles), Pertussis, Clostridium Difficile, Cancer, Breast Cancer or Cervical Cancer Family History FAMILY HISTORY: Positive Family Cardiac Disorders (MOTHER:HTN); Negative Family Psychiatric Problems, Family Respiratory Disorders, Family Gastrointestinal Problems, Family Cancer, Family Surgery or Family Anesthesia Reaction Surgical History SURGICAL: Negative Organ Transplant Social History SMOKING STATUS: Never smoker SECOND HAND EXPOSURE: No ED Exam General Limitations: Present no limitations General appearance: Present alert and in no apparent distress Head Head exam: Present atraumatic, normocephalic and normal inspection Eye Eye exam: Present normal appearance, PERRL and EOMI; Absent conjunctival injection ENT ENT exam: Present normal exam, normal oropharynx and mucous membranes moist Neck Neck exam: Present normal inspection, full ROM and trachea midline Chest Chest inspection: Present normal inspection and symmetric chest wall rise Respiratory Respiratory exam: Present normal lung sounds bilaterally Cardiovascular Cardiovascular exam: Present regular rate, normal rhythm and normal heart sounds Abdominal Exam Abdominal exam: Present soft and normal bowel sounds; Absent distention, tenderness, guarding, rebound or rigidity Extremities Exam Extremities exam: Present normal inspection and full ROM Back Exam Back exam: Present normal inspection and full ROM Neurological Exam Neurological exam: Present alert, oriented X3 and CN II-XII intact Psychiatric Psychiatric exam: Present normal affect and normal mood Skin Skin exam: Present warm, dry, intact and normal color Course Quality Measures none Orders Category Date Time Status Consult to Gynecology Stat Cons 12/17/24 12:26 Ordered US OB transvaginal Stat Exams 12/17/24 10:19 Completed ABO/RH Type Stat Lab 12/17/24 10:24 Completed Beta HCG,Quantitative Stat Lab 12/17/24 10:24 Completed CBC Stat Lab 12/17/24 10:24 Completed Comprehensive Metabolic Panel Stat Lab 12/17/24 10:24 Completed Vital Signs Vital signs: Vital Signs Temperature 98.3 F 12/17/24 10:11 Pulse Rate 84 12/17/24 10:11 Respiratory Rate 17 12/17/24 10:11 Blood Pressure 150/92 H 12/17/24 10:11 Pulse Oximetry (%) 98 12/17/24 10:11 Oxygen Delivery Method Room Air 12/17/24 10:11 o2 sat 98% r.a wnl OB/Uterine Contractions MDM Narrative MDM Narrative:: 34-year-old female presents emergency dept today for complaints of vaginal bleeding patient was sent by Dr. Serrato BISTRO ATTENDANT for further evaluation On exam patient well-appearing patient does not appear ill or toxic no acute distress patient seen medically stable Lab work and ultrasound reviewed symptoms consistent with missed I spoke with Dr. Serrato patient's BISTRO ATTENDANT states he will see the patient as office tomorrow Explained the patient if her symptoms persist or worsen she should return for reevaluation Patient data External records reviewed:: [facility] previous records Clinical information provided by:: patient Social determinants that could affect healthcare access:: none Patient has the following chronic illnesses:: None How is presenting disease/condition affected by chronic disease/condition?: no chronic disease Evaluation data The following diagnostics were reviewed and interpreted by me:: lab results and radiology exam(s) Lab and/or radiology exams considered but not ordered:: Labs radiology obtain Interpretation Summary: Reviewed by me Medications / Prescriptions Medications or Prescriptions considered but not ordered:: Given Medication administrations:: Given Consultations Consultation(s) initiated? (list below): Yes Consultation #1 (Physician, Specialty, Details): Dr. serrato coin counter and wrapper Diagnosis OB Contractions Differential Diagnosis: other (Missed , threatened ) Most likely diagnosis given after review of the tests above:: Missed Admission Indicated Admission indicated?: not indicated Explain why admission is indicated or not indicated:: No criteria Admission Request Was there a request for admission?: No Disposition Plan Disposition Plan: Discharge Discharge Attestation Discharge Attestation: The patient and all family members were given an opportunity to ask questions and understood the discharge instructions. Discharge instructions specifically effects, indications for sooner follow up or return to the emergency department, and the expected course of current diagnosis. Patient condition: Stable Discharge Plan Plan Patient Disposition: HOME (Self Care) Discharge Disposition comment: Stable Prescriptions/Referrals Prescriptions/Med Rec: No Action prenat.vits,blanco,[id number]-[id number]-[id number] Tablet 1 tab PO QDAY ferrous sulfate 27 mg iron Tablet 27 mg PO QDAY Referrals: [facility] [Other] - In 1 week Samm Serrato MD [Physician] - 12/18/24 Problem List Clinical Impression: Missed Patient/Caregiver Discharge Instructions Education Materials: Understanding Miscarriage ... Additional Instructions: Please see Dr. Serrato between 8 and 12 tomorrow for worsening symptoms return immediately Print Language: Arabic Stand Alone Forms: Felicity Award Info., Work/School Release, Patient Portal Info Letter PA/SPECIALIST FIELD ENGINEER Supervising Physician PA/SPECIALIST FIELD ENGINEER Supervising Physician: Dr. celestin
== END 2024-12-17 13:20 | disposition home or self-care (01) ==
PROVIDERS: Nurse Practitioner Primary Care; Emergency Provider Family Medicine; PCP Family Medicine
DX: O02.1 Missed abortion (principal)
CPT/HCPCS: 36415; 76817; 80053; 84702; 85025; 86900; 86901; 99283

== ENCOUNTER 2024-12-18 10:28 | Outpatient (AMB) | payer OTHER, SELFPAY ==
[2024-12-18 10:54] VITALS: BP 120/86; PULSE 72; RESP 18; TEMP 36.7; O2SAT 97; BMI 38.7
--- NOTE | 2024-12-18 10:54 | AMB.OBVISIT ---
Vital Signs 12/18/24 10:54 Height 1.63 m Height Method Stated Weight 102.965 kg Weight Measurement Method Standing Scale BMI 38.7 BP 120/86 H Blood Pressure Source Automatic Cuff Blood Pressure Location Right Upper Arm Position Sitting Respiration 18 Pulse 72 Pulse Source Monitor Temp 98.0 F Temp Source Temporal Artery Scan Pulse Oximetry (%) 97 Oxygen Delivery Method Room Air Allergies/Home Meds Allergies & Medications Allergies No Known Allergies Allergy (Verified 02/09/25 13:32) Medication Reconciliation prenat.vits,blanco,[id number]-kgdy-plnme 1 tab PO QDAY 08/03/22 [History Confirmed 12/18/24] ferrous sulfate 27 mg iron tablet 27 mg PO QDAY 04/03/24 [History Confirmed 12/18/24] baclofen 10 mg tablet 10 mg PO BID #20 tabs 02/09/25 [Rx] Intake Visit Data Collection New Patient or Established: Established Patient (seen at [facility] within 3 years) Reason for Visit:: ER FOLLOW UP Seen by Clinical Staff ONLY (RN/MA): No Line Service Supervisor Required: No Do You Feel Safe at Home: Yes Authorities Contacted: N/A PCP or OBGYN visit in last 3 months: Yes Date of Last PCP or OBGYN visit: 12/17/24 Hx Now: Yes Are you currently on any form of Control: No Pain Present Currently: Yes Pain Location: Abdomen Pain Scale Used: Muniz-Araujo/Numerical Pain scale:: 4 Smoking Status Smoking Status: Never smoker Questionnaires Covid-19 Vaccine Questionnaire Has patient been vacinated for Covid-19 Have you been vacinated for Covid-19: Yes PHQ-9 PHQ-2 Over the last 2 weeks, how often have you been bothered by any of the following problems? 1. Little interest or pleasure in doing things: not at all 2. Feeling down, depressed, or hopeless: several days Total score: 1 PHQ-9 3. Trouble falling or staying asleep, or sleeping too much: Not at all 4. Feeling tired or having little energy: Not at all 5. Poor appetite or overeating: Not at all 6. Feeling bad about yourself - or that you are a failure or have let yourself or your family down: Not at all 7. Trouble concentrating on things, such as reading the newspaper or watching television: Not at all 8. Moving or speaking so slowly that other people could have noticed? - Or the opposite - being so fidgety or restless that you have been moving around a lot more than usual: not at all 9. Thoughts that you would be better off or of hurting yourself in some way: Not at all Total score: 1 If you checked off any problems, how difficult have these problems made it for you to do your work, take care of things at home, or get along with other people?: not difficult at all Source: Developed by Drs. Neo Barlow, Flores Estes, Augustine Varma and colleagues, with an educational patricia from [employer]. Depression screen completed yes Social History Living Situation History Marital Status: Lives With: Family Housing: House Tobacco History Smoking Status: Never smoker Second Hand Smoke Exposure: No Alcohol History Alcohol Intake: Never Domestic Abuse History Do You Feel Safe at Home: Yes METAL WEIGHER: Past Medical History Past Medical History: No Hx Neurological Disorders, No Hx Breast Cancer, No Hx Cardiac Disorders, No Hx Cancer, Yes Hx Blood Disorders, Yes Hx Anemia, No Hx Gastrointestinal Disorders, No Hx Renal Disease, No Hx Diabetes Mellitus Type 1 and No Hx Diabetes Mellitus Type 2 History of Present Illness HPI Narrative Patient reports experiencing bleeding for 7 hours prior to her ER visit yesterday. She states that she is currently still passing clots and experiencing bleeding similar to a period, which is getting heavier. She describes lower back pain associated with the bleeding. Patient mentions feeling emotional and sad about the situation. She reports having had a super sharp pain in her upper stomach the day before yesterday, which was severe enough to make her sit down. However, she did not experience significant pain yesterday. The patient passed tissue at home before going to the ER, which prompted her visit. She is a female patient who presents for follow-up after an emergency room visit yesterday due to bleeding. Her last menstrual period was in September, and she notes that it started after 20 days, which she considers normal. She had been using a fertility tracking clair for natural family planning, which has worked for her in the past. Patient expresses concern about her weight, stating that she is at her heaviest and wants to focus on being healthy. Her obstetric history includes A1 L0, with a recent early loss (likely miscarriage). Serum hCG level was 68, with an estimated gestational age of approximately 4 weeks. She is taking a vitamin with 50 mg by mouth daily, which she reports helps with metabolism, nails, and skin. Diagnostic Test Results and Labs: - Serum hCG (12-17-2024): 68 - Ultrasound (12-17-2024): - Uterus: 9 cm - Endometrial stripe: 1.6 mm - Left lateral uterine body mass: 28 x 28 x 28 mm (consistent with degenerating fibroid) - Right ovary: 3.4 cm - Left ovary: 3.7 cm Exam General General Appearance: alert, in no apparent distress and healthy appearing Head Head exam: atraumatic Neck Neck exam: Present normal inspection and trachea midline Chest Chest inspection: Present normal inspection and symmetric chest wall rise External exam: Present normal external exam; Absent tenderness Neuro Neurological exam: Present oriented X3 Psych Psychiatric exam: Present normal affect and normal mood Office Procedures OB Clinic LOC & Office Proc's Nursing/Assessment Patient Status: Established Patient OB Clinic Nursing Assessment: Medication Reconciliation, Update PMH in EMR and Vital Signs OB Clinic Coordination of Care: Complex Care and Chronic Disease 1-5, Consent,records obtained, informed consent, Education Simp Pt/Fam, Lab and Imaging orders and Staff clarify orders Established Patient Charge Established Patient Point Assignment: 100 Established Patient Point Charge: EP Level 3 (80-115) Assessment & Plan Diagnosis / Problem List (1) Fibroid, uterine: Status: Acute (2) Spontaneous : Status: Acute Plan Possible Early Loss: - Serum hCG was 68 (very low, 50 is considered negative). - Ultrasound showed: ? Uterus measuring 9 cm ? Endometrial stripe of 1.6 mm ? Left lateral uterine body mass [id number] mm (consistent with degenerating fibroid) ? Right ovary 3.4 cm, left ovary 3.7 cm ? No intrauterine gestational sac visualized - Findings consistent with possible very early and miscarriage. - Differential diagnoses: early viable intrauterine , early loss, or ectopic . - Repeat serum hCG in 7 days (next Monday). - Repeat ultrasound in 7 days. - Televisit next Monday for lab results review. - Advised patient on hCG interpretation: rising indicates ongoing , dropping suggests miscarriage. - Counseled on common causes of early loss. - Continue vitamins. Obesity: - Patient reports being at her heaviest weight. - Encouraged dietary modifications and regular exercise as tolerated. - Continue discussion on weight management strategies at future visits. Family Planning: - Patient using natural family planning methods. - Menstrual cycles irregular since , last menstrual period in September. - Discussed potential irregularity of ovulation post-. - Recommended use of ovulation test kits for more accurate ovulation prediction. - Continue discussion on family planning options at future visits.
== END 2024-12-18 11:31 | disposition home or self-care (01) ==
LOC: HODSOBC 10:28
PROVIDERS: Supervising Provider Obstetrics & Gynecology; Visit Provider Obstetrics & Gynecology
DX: O03.9 Complete or unspecified spontaneous abortion without complication (principal); D25.9 Leiomyoma of uterus, unspecified
CPT/HCPCS: 99213; G0463

== ENCOUNTER 2025-02-09 13:30 | Emergency (ER) | payer OTHER, SELFPAY ==
[2025-02-09 13:59] VITALS: BP 125/74; PULSE 76; RESP 18; TEMP 36.9; O2SAT 98
--- NOTE | 2025-02-09 14:13 | PD.EDADULT ---
ED General RME/HPI General Chief complaint: General Adult/Misc Complain Stated complaint: SHARP PAIN L) SIDE Time Seen by Provider: 02/09/25 14:06 Arrival date/time: 02/09/25 13:30 Related Data Home Medications ?Medication ?Instructions ?Recorded ?Confirmed prenat.vits,blanco,[id number] 1 tab PO QDAY 08/03/22 12/18/24 ferrous sulfate 27 mg iron tablet 27 mg PO QDAY 04/03/24 12/18/24 Allergies Allergy/AdvReac Type Severity Reaction Status Date / Time No Known Allergies Allergy Verified 02/09/25 13:32 Course Vital Signs Vital signs: Vital Signs Temperature 98.4 F 02/09/25 13:59 Pulse Rate 76 02/09/25 13:59 Respiratory Rate 18 02/09/25 13:59 Blood Pressure 125/74 02/09/25 13:59 Pulse Oximetry (%) 98 02/09/25 13:59 Oxygen Delivery Method Room Air 02/09/25 13:59 Discharge Plan Prescriptions/Referrals Prescriptions/Med Rec: No Action prenat.vits,blanco,[id number] Tablet 1 tab PO QDAY ferrous sulfate 27 mg iron Tablet 27 mg PO QDAY Patient/Caregiver Discharge Instructions Print Language: Yi
--- NOTE | 2025-02-09 14:14 | XR_ITS ---
Examination: PA lateral chest 2 views. Technique: Upright PA lateral chest 2 views Date and time: February 09, 2025, 1442 hrs. Indications: Shortness of breath left chest and rib pain 3 days no trauma Findings: Normal heart size. Lungs are clear. The osseous structures are intact. Impression: No active disease.
--- NOTE | 2025-02-09 14:14 | XR_ITS ---
Examination: CT abdomen and pelvis without contrast. Coronal 3-D reconstructions. Sagittal 2-D reconstructions. Date and time of exam:February 08 1025, 1659 hrs. Indications: Onset left upper abdominal pain beginning 3 days ago CTDI: vol (mGy): 14.9 DLP: (mGycm): 875 Technique: Axial images of the abdomen have been obtained, 3 mm slice thickness Intravenous contrast material has not been administered. Low dose protocols were performed. One or more of the following dose reduction techniques were used; automated exposure control, adjustment of the mA and/or KV according to patient size, use of iterative reconstruction technique. Findings: No focal liver or splenic lesions No gallstones. No pancreatic or adrenal mass. Bilateral renal parenchymal scar formation, no hydronephrosis or ureteral calculi Aorta normal size. Normal appendix Calcified uterine fundal mass 24 mm Contracted urinary bladder Impression: No renal or ureteral calculi, no hydronephrosis Normal appendix No bowel obstruction diverticulitis or free air. 24 mm calcified uterine fundal mass, likely fibroid degeneration
[2025-02-09] MEDS: KETOROLAC INJ 60 MG/2 ML VIAL 30 MG IM (14:33)
[2025-02-09 14:44] LABS: Collection Type, Urine Clean Catch
[2025-02-09 14:55] LABS: Bilirubin,Urine Negative (Negative); Blood,Urine Negative (Negative); Clarity,Urine Clear (Clear/Hazy); Color,Urine Colorless (Lt Yel-Yel); Glucose, Urine Negative (Negative); Ketones,Urine Negative (Negative); Leukocyte Esterase,Urine Positive (Negative); Nitrite,Urine Negative (Negative); PH,Urine 6.0 (5.0-7.0); Protein,Urine Negative (Neg - Trace); RBC,Urine 2 /hpf (0-3); Specific Gravity,Urine 1.004 (1.001-1.035); Squamous Epithelial Cell,Urine 1 /hpf (0-5); Urobilinogen,Urine Negative mg/dL (0.0-1.0); WBC,Urine 2 /hpf (0-5)
[2025-02-09 16:27] LABS: HCG,Qualitative Serum Negative
[2025-02-09 16:29] LABS: Basophils # (Auto) 0.0 Thou/mm3 (0.0-0.2); Basophils % (Auto) 0 % (0-2.5); Eosinophils # (Auto) 0.2 Thou/mm3 (0.0-0.5); Eosinophils % (Auto) 2 % (0-10); Hematocrit 39.5 % (36.0-46.0); Hemoglobin 13.5 g/dL (12.0-16.0); Immature Granulocytes Auto 0.03 Thou/mm3 (0.00-0.00); Lymphocytes # (Auto) 3.0 Thou/mm3 (1.0-4.8); Lymphocytes % (Auto) 29 % (10-50); Mean Corpuscular HGB Conc 34.2 g/dl (31.0-37.0); Mean Corpuscular Hemoglobin 29.5 pg (25.0-35.0); Mean Corpuscular Volume 86 fL (80-100); Monocytes # (Auto) 0.7 Thou/mm3 (0.0-0.8); Monocytes % (Auto) 7 % (0-12); Neutrophils # (Auto) 6.4 Thou/mm3 (1.8-7.7); Neutrophils % (Auto) 62 % (37-80); Nucleated Red Blood Cell # 0.00 Thou/mm3 (0.00-0.00); Nucleated Red Blood Cell % 0 /100 WBC (0); Platelet Count 341 Thou/mm3 (140-440); RDW Standard Deviation 40.9 fL (36.4-46.3); Red Blood Count 4.58 Miln/mm3 (4.00-5.20); White Blood Count 10.4 Thou/mm3 (3.6-11.0)
[2025-02-09 16:31] LABS: Alanine Aminotransferase 17 U/L (10-49); Albumin, Serum 4.5 gm/dL (3.5-5.0); Albumin/Globulin Ratio 1.6 (1.2-2.2); Alkaline Phosphatase 98 U/L (46-116); Anion Gap 11 (7-16); Aspartate Amino Transferase 21 U/L (0-34); BUN/Creatinine Ratio 13 Ratio (12-20); Bilirubin,Total 0.4 mg/dL (0.3-1.2); Blood Urea Nitrogen 12 mg/dL (9-23); Calcium 9.7 mg/dL (8.3-10.6); Calcium (Corrected) 9.7 mg/dL (8.5-10.1); Carbon Dioxide 24.9 mMol/L (20.0-31.0); Chloride 104 mMol/L (98-107); Creatinine (Component) 0.9 mg/dL (0.6-1.3); Estimated Creatinine Clearance 104.6 mL/min (>60); Globulin 2.9 gm/dL (2.3-3.5); Glucose 80 mg/dL (74-106); Lipase 40 U/L (12-53); Osmolality,Calculated 278 (275-295); Potassium 4.3 mMol/L (3.4-5.1); Sodium 140 mMol/L (136-145); Total Protein 7.4 gm/dL (5.7-8.2); eGFR > 60 See Note
--- NOTE | 2025-02-09 17:43 | PD.EDRME ---
Rapid Medical Screening Exam RME Arrival date/time: 02/09/25 13:30 Chief Complaint: General Adult/Misc Complain Time Seen by Provider: 02/09/25 14:06 Vital signs: Vital Signs Temperature 98.4 F 02/09/25 13:59 Pulse Rate 76 02/09/25 13:59 Respiratory Rate 18 02/09/25 13:59 Blood Pressure 125/74 02/09/25 13:59 Pulse Oximetry (%) 98 02/09/25 13:59 Oxygen Delivery Method Room Air 02/09/25 13:59 RME Narrative: 34-year-old female complaining of about 2 days of left upper quadrant pain. States she was headed to [place] and felt a sudden sharp pain on her left rib area and left upper quadrant that it took her breath away. No history of abdominal surgeries. No history of kidney stones. No history of gallstones. No fever.
--- NOTE | 2025-02-09 18:08 | PD.EDADULT ---
ED General RME/HPI General Chief complaint: General Adult/Misc Complain Stated complaint: SHARP PAIN L) SIDE Time Seen by Provider: 02/09/25 14:06 Arrival date/time: 02/09/25 13:30 Limitations: no limitations RME / HPI RME / HPI narrative: 34-year-old female complaining of about 2 days of left upper quadrant pain. States she was headed to [place] and felt a sudden sharp pain on her left rib area and left upper quadrant that it took her breath away. No history of abdominal surgeries. No history of kidney stones. No history of gallstones. No fever. The only thing she does think maybe contributing is she lifts her son who weighs about 40lbs on her left hip all the time. However states has never been this sore. No rashes to area of ttp. Related Data Home Medications ?Medication ?Instructions ?Recorded ?Confirmed prenat.vits,blanco,[id number] 1 tab PO QDAY 08/03/22 12/18/24 ferrous sulfate 27 mg iron tablet 27 mg PO QDAY 04/03/24 12/18/24 Previous Rx's ?Medication ?Instructions ?Recorded baclofen 10 mg tablet 10 mg PO BID #20 tabs 02/09/25 Allergies Allergy/AdvReac Type Severity Reaction Status Date / Time No Known Allergies Allergy Verified 02/09/25 13:32 Review of Systems Review of Systems Systems Reviewed: All systems reviewed, normal except as documented Constitutional Constitutional: Denies fever(s) Eyes Eyes: Denies eye discharge Cardiovascular Cardiovascular: Denies chest pain, Denies diaphoresis and Denies dyspnea Respiratory Respiratory: Denies cough and Denies dyspnea Gastrointestinal Gastrointestinal: Reports abdominal pain and Reports constipation Genitourinary Genitourinary: Denies dysuria Musculoskeletal Musculoskeletal: Reports as per HPI ED Exam General Limitations: Present no limitations General appearance: Present alert and in no apparent distress Eye Eye exam: Present normal appearance, PERRL and EOMI Respiratory Respiratory exam: Present normal lung sounds bilaterally Cardiovascular Cardiovascular exam: Present regular rate, normal rhythm and normal heart sounds Abdominal Exam Abdominal exam: Present soft, tenderness (left flank, and axillary line ttp, no rashes ) and normal bowel sounds Extremities Exam Extremities exam: Present normal inspection and full ROM Back Exam Back exam: Present normal inspection and full ROM Psychiatric Psychiatric exam: Present normal affect and normal mood Skin Skin exam: Present warm, dry, intact and normal color Course Quality Measures none Orders Category Date Time Status CT abdomen pelvis wo con Stat Exams 02/09/25 14:14 Completed XR chest 2V Stat Exams 02/09/25 14:14 Completed CBC Stat Lab 02/09/25 15:15 Completed CMP [Comprehensive Metabolic Panel] Stat Lab 02/09/25 15:15 Completed HCG,Qualitative Serum Stat Lab 02/09/25 15:15 Completed Lipase Stat Lab 02/09/25 15:15 Completed UA [Urinalysis] Stat Lab 02/09/25 14:39 Completed Ketorolac Inj [Toradol Inj] Med 02/09/25 14:14 Discontinued 30 mg IM X1 ONE Vital Signs Vital signs: Vital Signs Temperature 98.4 F 02/09/25 13:59 Pulse Rate 76 02/09/25 13:59 Respiratory Rate 18 02/09/25 13:59 Blood Pressure 125/74 02/09/25 13:59 Pulse Oximetry (%) 98 02/09/25 13:59 Oxygen Delivery Method Room Air 02/09/25 13:59 Discharge Plan Plan Patient Disposition: HOME (Self Care) Discharge Disposition comment: f/u with pcp in 2-3days Prescriptions/Referrals Prescriptions/Med Rec: New baclofen 10 mg tablet 10 mg PO BID Qty: 20 0RF No Action prenat.vits,blanco,[id number] Tablet 1 tab PO QDAY ferrous sulfate 27 mg iron Tablet 27 mg PO QDAY Referrals: Priti Otoole MD [Primary Care Provider] - In 1 week Problem List Clinical Impression: Back spasm, Abdominal pain, Fibroid, uterine Patient/Caregiver Discharge Instructions Education Materials: Abdominal Pain, ED Muscle Spasm Print Language: Maori Stand Alone Forms: Felicity Award Info., Patient Portal Info Letter PA/COAT PRESSER Supervising Physician PA/COAT PRESSER Supervising Physician: Dr. Alvarez MDM Clinical Information Provided by patient Medical Records Reviewed [facility] Meds/Rx Considered, not Ordered None Describe details: narcotics considered however likely risks out weigh benefits Labs/Rad/Tests considered, not Ordered Describe details: all imaging considered was ordered Chronic Illness/Social Conditions Add or document further as needed: none Lab Interpretation Lab(s) interpretation(s): cmp, cbc, lipase and ua wnl Imaging Provider imaging interpretation(s): pt found to have uterine fibroid otherwise wnl Medication Administration(s) Medication Administration History Discontinued Medications Ketorolac Tromethamine (Ketorolac Inj 60 Mg/2 Ml Vial) 30 mg IM X1 ONE Stop: 02/09/25 14:15 Last Admin: 02/09/25 14:33 Dose: 30 mg Documented By: RICHARD see above Diagnosis Differential diagnosis: splenomagally, kidneystones, pyelo, uti, muscle wall strain, shingles Most likely dx, and/or detailed dx discussion: muslce wall strain Dispositon Disposition: Discharge Home
== END 2025-02-09 18:17 | disposition home or self-care (01) ==
PROVIDERS: Emergency Provider Physician Assistant; PCP Family Medicine
DX: D25.9 Leiomyoma of uterus, unspecified (principal); R10.12 Left upper quadrant pain; M62.830 Muscle spasm of back; R06.02 Shortness of breath; R07.81 Pleurodynia
CPT/HCPCS: 36415; 71046; 74176; 80053; 81001; 83690; 84703; 85025; 96372; 99283; J1885